=== PATIENT | female | born 1985 | race Caucasian/White ===

== ENCOUNTER 2022-02-26 19:05 | Emergency (ER) | payer OTHER ==
--- NOTE | 2022-02-26 19:17 | ERPHSYRPT ---
- History of Present Illness Time Seen by Provider: 02/26/22 19:17 Source: patient Exam Limitations: no limitations Physician History: This is a 36-year-old white female who has diabetes and hypertension and began having pain in her lower back that was radiating down her buttock. She has no difficulty urinating. She has no bowel or bladder incontinence. She has no loss of sensation or motor function in her lower extremities. She has had no back surgeries in the past. She has not fallen and denies acute traumatic injury. She has no urinary tract infection symptoms. Patient stated that she has tried Tylenol and ibuprofen without any benefit. Patient states that she has had steroids in the past Timing/Duration: yesterday Method of Injury: other (No injury) Quality: radiating, sharp Back Pain Location: lumbar spine Back Pain Radiation: buttocks Severity of Pain-Max: moderate Severity of Pain-Current: moderate Modifying Factors: Improves With: movement Associated Symptoms: lower back pain, muscle spasms, No urinary incontinence, No loss of bowel control, No constipation, No vomiting, No problems urinating, No numbness in legs/feet Previous symptoms: no prior history Allergies/Adverse Reactions: naproxen Adverse Reaction (Severe, Verified 02/26/22 19:27) Rash daptomycin [From Cubicin] Adverse Reaction (Intermediate, Verified 02/26/22 19:27) Hives insulin detemir [From Levemir U-100 Insulin] Adverse Reaction (Intermediate, Verified 02/26/22 19:27) Hives Home Medications: Amlodipine Besylate 5 mg [Norvasc 5 mg] 5 mg PO DAILY 02/26/22 [History] Citalopram Hydrobromide [Celexa] 40 mg PO DAILY 02/26/22 [History] Famotidine 20 mg PO DAILY 02/26/22 [History] Gabapentin 300 mg PO TID 02/26/22 [History] Gemfibrozil [Lopid] 600 mg PO BID 02/26/22 [History] Metformin HCl 500 mg [Glucophage 500 MG] 1 tab PO BID 02/26/22 [History] cloNIDine HCL [Clonidine HCl] 0.2 mg PO TID 02/26/22 [History] Travel Risk - International Travel Have you traveled outside of the country in past 3 weeks: No - Coronavirus Screening Are you exhibiting any of the following symptoms?: No Close contact with a COVID-19 positive Pt in past 14-21 Days: No - Review of Systems Constitutional: No Symptoms Eyes: No Symptoms Ears, Nose, & Throat: No Symptoms Respiratory: No Symptoms Cardiac: No Symptoms Abdominal/Gastrointestinal: No Symptoms Genitourinary Symptoms: No Symptoms Musculoskeletal: No Symptoms, Back Pain, No Fall, No Injury Skin: No Symptoms Neurological: No Symptoms Psychological: No Symptoms Endocrine: No Symptoms Hematologic/Lymphatic: No Symptoms Immunological/Allergic: No Symptoms All Other Systems: Reviewed and Negative - Past Medical History Pertinent Past Medical History: Yes - Past Surgical History Past Surgical History: Yes - Nursing Vital Signs Nursing Vital Signs: Initial Vital Signs Temperature 98.4 F 02/26/22 19:17 Pulse Rate 65 02/26/22 19:17 Respiratory Rate 20 02/26/22 19:17 Blood Pressure 140/73 02/26/22 19:17 O2 Sat by Pulse Oximetry 99 02/26/22 19:17 Pain Scale Pain Intensity 10 - Physical Exam General Appearance: no apparent distress, alert, anxiety Eye Exam: PERRL/EOMI, eyes nml inspection Ears, Nose, Throat Exam: normal ENT inspection, moist mucous membranes Neck Exam: normal inspection, non-tender, supple, full range of motion Respiratory Exam: airway intact, No chest tenderness, No respiratory distress Gastrointestinal Exam: No tenderness Pelvic Exam: not done Rectal Exam: not done Back Exam: decreased range of motion, muscle spasm, No vertebral tenderness Extremity Exam: normal inspection, normal range of motion, pelvis stable Neurologic Exam: alert, oriented x 3, cooperative, cutter head sharpener II-XII nml as tested, normal mood/affect, nml cerebellar function, nml station & gait, sensation nml Skin Exam: normal color, warm, dry Lymphatic Exam: No adenopathy SpO2 Interpretation: normal O2 Delivery: Room Air - Course Nursing assessment & vital signs reviewed: Yes Ordered Tests: Active Orders 24 hr Category Date Time Status NECK WO CONTRAST [CT] Stat Exams 02/26/22 19:52 Stop Req Medication Summary Discontinued Medications Generic Name Dose Route Start Last Admin Trade Name Freq PRN Reason Stop Dose Admin Ceftriaxone Sodium 1,000 mg 02/26/22 19:53 Ceftriaxone Sodium 1000 Mg Inj Vial IM 02/26/22 19:54 STAT ONE Methylprednisolone Sodium 0 mg 02/26/22 19:53 Succinate 125 mg/ Sterile IM 02/26/22 19:54 Water 2 ml STAT ONE Orphenadrine Citrate 100 mg 02/26/22 19:55 Orphenadrine Citrate 100 Mg Er Tab PO 02/26/22 19:56 STAT ONE Oxycodone/Acetaminophen 1 tab 02/26/22 19:55 Oxycodone Hcl/Apap 5 Mg/325 Mg Tablet PO 02/26/22 19:56 STAT STA - Progress Progress: improved, pain not gone completely Counseled pt/family regarding: diagnosis, need for follow-up - Departure Departure Disposition: Home Clinical Impression: Back pain Condition: Stable Critical Care Time: No Additional Instructions: Take your medication as prescribed. Call your primary prescribing provider tomorrow morning to make arranges for follow-up for further evaluation and management. Prescriptions: Prednisone 10 mg [Deltasone 10 mg] 10 mg PO TID #12 tablet Orphenadrine Citrate 100 mg [Norflex 100 MG Tablet] 100 mg PO BID #10 tab
[2022-02-26] MEDS ORDERED: Rocephin 1000 MG INJ IM ONE (19:53)
[2022-02-26] MEDS ORDERED: solu-MEDROL 125 MG, Sterile H2O 10 ml 2 ML IM ONE ×2 (19:53)
[2022-02-26] MEDS ORDERED: Norflex 100 MG Tablet PO ONE (19:55)
[2022-02-26] MEDS ORDERED: PERCOCET TABLET 5/325MG PO STA ×2 (19:55→20:06)
[2022-02-26] MEDS ORDERED: Sterile H2O 10 ml IJ ONE (20:02)
[2022-02-26] MEDS ORDERED: solu-MEDROL ONE (20:03)
[2022-02-26] MEDS ORDERED: PERCOCET TABLET 5/325MG ONE ×2 (20:03→20:11)
[2022-02-26 20:23] VITALS: BP 112/64; PULSE 72; O2SAT 98
== END 2022-02-26 20:24 | disposition home or self-care (01) ==
LOC: ED 19:05
DX: M54.50 Low back pain, unspecified (principal); Z79.84 Long term (current) use of oral hypoglycemic drugs; Z79.52 Long term (current) use of systemic steroids; Z79.899 Other long term (current) drug therapy
CPT/HCPCS: 96372; 99283; J2930; A9270-GY

== ENCOUNTER 2022-03-04 18:46 | Emergency (ER) | payer OTHER ==
--- NOTE | 2022-03-04 19:01 | ERPHSYRPT ---
- History of Present Illness Time Seen by Provider: 03/04/22 19:01 Source: patient Exam Limitations: no limitations Physician History: This is an overweight 36-year-old white female who is new to the area and does not have a primary care physician but is working to [employer] and presents with recurrent low back pain with radiates to both buttock areas. Patient states that she was experiencing improved low back pain after her visit here on 02/26/2022 and receiving a prescription for prednisone and Norflex orally. However, today she twisted the wrong way when she was opening a car door and the pain recurred. She did not fall. She does not have urinary incontinence. She has no loss of control of her bowels. She has no constipation. She does not have loss of sensation to her lower extremities. Timing/Duration: today Method of Injury: bending, twisted Quality: sharp Back Pain Location: lumbar spine, paraspinous muscles Back Pain Radiation: buttocks Severity of Pain-Max: moderate Severity of Pain-Current: moderate Modifying Factors: Improves With: movement Associated Symptoms: lower back pain, muscle spasms, No urinary incontinence, No loss of bowel control, No problems urinating, No numbness in legs/feet, No sensory/motor loss, No tingling in legs/feet Previous symptoms: same symptoms as today, recently seen, recently treated Allergies/Adverse Reactions: naproxen Adverse Reaction (Severe, Verified 03/04/22 19:02) Rash daptomycin [From Cubicin] Adverse Reaction (Intermediate, Verified 03/04/22 19:02) Hives insulin detemir [From Levemir U-100 Insulin] Adverse Reaction (Intermediate, Verified 03/04/22 19:02) Hives Home Medications: Amlodipine Besylate 5 mg [Norvasc 5 mg] 5 mg PO DAILY 02/26/22 [History] Citalopram Hydrobromide [Celexa] 40 mg PO DAILY 02/26/22 [History] Famotidine 20 mg PO DAILY 02/26/22 [History] Gabapentin 300 mg PO TID 02/26/22 [History] Gemfibrozil [Lopid] 600 mg PO BID 02/26/22 [History] Metformin HCl 500 mg [Glucophage 500 MG] 1 tab PO BID 02/26/22 [History] cloNIDine HCL [Clonidine HCl] 0.2 mg PO TID 02/26/22 [History] Hx Tetanus, Diphtheria Vaccination/Date Given: Yes Hx Influenza Vaccination/Date Given: No Hx Pneumococcal Vaccination/Date Given: No Travel Risk - International Travel Have you traveled outside of the country in past 3 weeks: No - Coronavirus Screening Are you exhibiting any of the following symptoms?: No Close contact with a COVID-19 positive Pt in past 14-21 Days: No - Vaccine Status Have you recieved a Covid-19 vaccination: No - Review of Systems Constitutional: No Symptoms Eyes: No Symptoms Ears, Nose, & Throat: No Symptoms Respiratory: No Symptoms Cardiac: No Symptoms Abdominal/Gastrointestinal: No Symptoms Genitourinary Symptoms: No Symptoms Musculoskeletal: Back Pain Skin: No Symptoms Neurological: No Symptoms Psychological: No Symptoms Endocrine: No Symptoms Hematologic/Lymphatic: No Symptoms Immunological/Allergic: No Symptoms All Other Systems: Reviewed and Negative - Past Medical History Pertinent Past Medical History: Yes Neurological History: No Pertinent History ENT History: No Pertinent History Cardiac History: No Pertinent History Respiratory History: Asthma, Bronchitis Endocrine Medical History: Diabetes Type II Musculoskeletal History: No Pertinent History GI Medical History: GERD, Gallbladder Disease History: No Pertinent History Psycho-Social History: Anxiety, Depression Female Reproductive Disorders: No Pertinent History Other Medical History: skin disease - Past Surgical History Past Surgical History: Yes Neuro Surgical History: No Pertinent History Cardiac: No Pertinent History Respiratory: No Pertinent History Gastrointestinal: Cholecystectomy Genitourinary: No Pertinent History Musculoskeletal: No Pertinent History Female Surgical History: Hysterectomy Other Surgical History: sweat glands and oil glands removed from armpits and rt leg - Social History Smoking Status: Former smoker Exposure to second hand smoke: No Drug Use: none Patient Lives Alone: No - Nursing Vital Signs Nursing Vital Signs: Initial Vital Signs Temperature 96.9 F 03/04/22 18:57 Pulse Rate 73 03/04/22 18:57 Respiratory Rate 16 03/04/22 18:57 Blood Pressure 157/96 03/04/22 18:57 O2 Sat by Pulse Oximetry 99 03/04/22 18:57 Pain Scale Pain Intensity 4 - Physical Exam General Appearance: no apparent distress, alert, anxiety, obese Eye Exam: PERRL/EOMI, eyes nml inspection Ears, Nose, Throat Exam: normal ENT inspection, moist mucous membranes Neck Exam: normal inspection, non-tender, supple, full range of motion Respiratory Exam: airway intact, No chest tenderness, No respiratory distress Rectal Exam: not done Back Exam: normal inspection, decreased range of motion, muscle spasm, No CVA tenderness, No vertebral tenderness Extremity Exam: normal inspection, normal range of motion, pelvis stable Neurologic Exam: alert, oriented x 3, cooperative, research test engine evaluator II-XII nml as tested, normal mood/affect, nml cerebellar function, nml station & gait, sensation nml Skin Exam: normal color, warm, dry Lymphatic Exam: No adenopathy SpO2 Interpretation: normal O2 Delivery: Room Air Ordered Tests: Active Orders 24 hr Category Date Time Status LUMBAR LIMITED (2 OR 3 VIEWS) Stat Exams 03/04/22 19:13 Taken Medication Summary Discontinued Medications Generic Name Dose Route Start Last Admin Trade Name Marcelq PRN Reason Stop Dose Admin Hydromorphone HCl 1 mg 03/04/22 19:22 03/04/22 19:27 Hydromorphone 1 Mg/1ml Inj 1 Mg/Ml Syringe IM 03/04/22 19:23 1 mg STAT ONE Administration Hydromorphone HCl Confirm 03/04/22 19:25 Hydromorphone 1 Mg/1ml Inj 1 Mg/Ml Syringe Administered 03/04/22 19:26 Dose 1 mg .ROUTE .STK-MED ONE Ondansetron HCl 4 mg 03/04/22 19:22 03/04/22 19:27 Zofran 4 Mg/Udtablet Orally Disintegrating PO 03/04/22 19:23 4 mg STAT ONE Administration Ondansetron HCl Confirm 03/04/22 19:25 Zofran 4 Mg/Udtablet Orally Disintegrating Administered 03/04/22 19:26 Dose 4 mg .ROUTE .STK-MED ONE Orphenadrine Citrate 100 mg 03/04/22 19:23 03/04/22 19:39 Orphenadrine Citrate 100 Mg Er Tab PO 03/04/22 19:24 100 mg STAT ONE Administration - Progress Progress: improved, pain not gone completely, re-examined Progress Note: 03/04/22 20:13 X-ray of the lumbar spine shows no acute fracture or subluxation. Counseled pt/family regarding: diagnosis, need for follow-up, rad results - Departure Departure Disposition: Home Clinical Impression: Low back pain Condition: Stable Critical Care Time: No Referrals: DOCTOR,NO FAMILY [Primary Care Provider] - Follow up/PCP as directed Additional Instructions: Add ibuprofen 600 mg orally with food 3 times a day for the next 5 days. Follow-up with Dr. Graff's office to make sure you obtain an appointment. Prescriptions: Oxycodone HCl/Acetaminophen [Percocet 5-325 mg Tablet] 1 each PO Q8H PRN PRN #6 tablet MDD 3 PRN Reason: Moderate To Severe Pain Orphenadrine Citrate 100 mg [Norflex 100 MG Tablet] 100 mg PO BID #10 tab
[2022-03-04] MEDS ORDERED: ZOFRAN ODT 4 MG PO ONE (19:22)
[2022-03-04] MEDS ORDERED: Hydromorphone 1 mg/ml Injection IM ONE (19:22)
[2022-03-04] MEDS ORDERED: Norflex 100 MG Tablet PO ONE (19:23)
[2022-03-04] MEDS ORDERED: ZOFRAN ODT 4 MG ONE (19:25)
[2022-03-04] MEDS ORDERED: Hydromorphone 1 mg/ml Injection ONE (19:25)
[2022-03-04 20:12] VITALS: BP 142/92; PULSE 81; O2SAT 98
--- NOTE | 2022-03-05 08:52 | XRAY ---
Indication: Lumbar pain. No known injury. Comparison: None 3 view lumbar spine demonstrates 5 lumbar segments in normal alignment with minimal L4-S1 disc space narrowing and incidental surgical clip lateral to right L2-L3 interspace. No other bony, articular, or soft tissue abnormalities.
== END 2022-03-04 20:22 | disposition home or self-care (01) ==
LOC: ED 18:46
DX: M54.50 Low back pain, unspecified (principal); X50.0XXA Overexertion from strenuous movement or load, initial encounter; E11.9 Type 2 diabetes mellitus without complications; Z79.84 Long term (current) use of oral hypoglycemic drugs; Z79.899 Other long term (current) drug therapy; Z28.310 Unvaccinated for COVID-19; Z79.891 Long term (current) use of opiate analgesic
CPT/HCPCS: 72100; 96372; 99283; J1170; Q0162; A9270-GY

== ENCOUNTER 2022-03-26 16:26 | Emergency (ER) | payer OTHER ==
--- NOTE | 2022-03-26 16:35 | ERPHSYRPT ---
- History of Present Illness Time Seen by Provider: 03/26/22 16:35 Source: patient Exam Limitations: no limitations Physician History: This is a 36-year-old overweight white female who is diabetic and also has a history of hidradenitis suppurativa and is taking metformin and chronic daily clindamycin and presents with recurrent abscesses x2 in the left buttock. She has not had any fevers. Timing/Duration: day(s) (Enlarging over the last few days) Quality: burning, painful Severity: moderate Location: other (Left buttock) Possible Causes: other (Hidradenitis suppurativa) Associated Symptoms: denies symptoms Allergies/Adverse Reactions: naproxen Adverse Reaction (Severe, Verified 03/26/22 16:37) Rash daptomycin [From Cubicin] Adverse Reaction (Intermediate, Verified 03/26/22 16:37) Hives insulin detemir [From Levemir U-100 Insulin] Adverse Reaction (Intermediate, Verified 03/26/22 16:37) Hives Home Medications: Amlodipine Besylate 5 mg [Norvasc 5 mg] 5 mg PO DAILY 02/26/22 [History] Citalopram Hydrobromide [Celexa] 40 mg PO DAILY 02/26/22 [History] Famotidine 20 mg PO DAILY 02/26/22 [History] Gabapentin 300 mg PO TID 02/26/22 [History] Gemfibrozil [Lopid] 600 mg PO BID 02/26/22 [History] Metformin HCl 500 mg [Glucophage 500 MG] 1 tab PO BID 02/26/22 [History] cloNIDine HCL [Clonidine HCl] 0.2 mg PO TID 02/26/22 [History] Hx Tetanus, Diphtheria Vaccination/Date Given: Yes Hx Influenza Vaccination/Date Given: No Hx Pneumococcal Vaccination/Date Given: No Travel Risk - International Travel Have you traveled outside of the country in past 3 weeks: No - Coronavirus Screening Are you exhibiting any of the following symptoms?: No Close contact with a COVID-19 positive Pt in past 14-21 Days: No - Vaccine Status Have you recieved a Covid-19 vaccination: No - Review of Systems Constitutional: No Symptoms Eyes: No Symptoms Ears, Nose, & Throat: No Symptoms Respiratory: No Symptoms Cardiac: No Symptoms Abdominal/Gastrointestinal: No Symptoms Genitourinary Symptoms: No Symptoms Musculoskeletal: No Symptoms Skin: Other (Abscesses x2 left buttock) Neurological: No Symptoms Psychological: No Symptoms Endocrine: No Symptoms Hematologic/Lymphatic: No Symptoms Immunological/Allergic: No Symptoms All Other Systems: Reviewed and Negative - Past Medical History Pertinent Past Medical History: Yes Neurological History: No Pertinent History ENT History: No Pertinent History Cardiac History: No Pertinent History Respiratory History: Asthma, Bronchitis Endocrine Medical History: Diabetes Type II Musculoskeletal History: No Pertinent History GI Medical History: GERD, Gallbladder Disease History: No Pertinent History Psycho-Social History: Anxiety, Depression Female Reproductive Disorders: No Pertinent History Other Medical History: skin disease - Past Surgical History Past Surgical History: Yes Neuro Surgical History: No Pertinent History Cardiac: No Pertinent History Respiratory: No Pertinent History Gastrointestinal: Cholecystectomy Genitourinary: No Pertinent History Musculoskeletal: No Pertinent History Female Surgical History: Hysterectomy Other Surgical History: sweat glands and oil glands removed from armpits and rt leg - Social History Smoking Status: Former smoker Exposure to second hand smoke: No Drug Use: none Patient Lives Alone: No - Nursing Vital Signs Nursing Vital Signs: Initial Vital Signs Temperature 97.5 F 03/26/22 16:38 Pulse Rate 80 03/26/22 16:38 Respiratory Rate 18 03/26/22 16:38 Blood Pressure 140/76 03/26/22 16:38 O2 Sat by Pulse Oximetry 98 03/26/22 16:38 Pain Scale Pain Intensity 9 - Physical Exam General Appearance: no apparent distress, alert, anxiety Eye Exam: PERRL/EOMI, eyes nml inspection Ears, Nose, Throat Exam: normal ENT inspection, moist mucous membranes Neck Exam: normal inspection, non-tender, supple, full range of motion Respiratory Exam: airway intact, No chest tenderness, No respiratory distress Gastrointestinal/Abdomen Exam: No tenderness Pelvic Exam: not done Rectal Exam: not done Back Exam: normal inspection, normal range of motion, No CVA tenderness, No vertebral tenderness Extremity Exam: normal inspection, normal range of motion, pelvis stable Neurologic Exam: alert, oriented x 3, cooperative, manufacturing technician II-XII nml as tested, normal mood/affect, nml cerebellar function, nml station & gait, sensation nml Skin Exam: other (Abscesses x2 left buttock. Each 1 measuring approximately 2- 1/2 cm in its greatest diameter. They are ballotable and obvious abscess present) Lymphatic Exam: No adenopathy SpO2 Interpretation: normal O2 Delivery: Room Air Procedures - Incision and Drainage Time of Procedure: 17:05 Site: Left buttock2 abscesses Anesthesia: 1% Lidocaine cc's of anesthesia: 5 (Total) Blade Size: 15 I & D Procedure: betadine prep, culture obtained Results: moderate amount pus - Course Nursing assessment & vital signs reviewed: Yes Ordered Tests: Active Orders 24 hr Category Date Time Status CULTURE,WOUND Stat Lab 03/26/22 16:48 Ordered Medication Summary Discontinued Medications Generic Name Dose Route Start Last Admin Trade Name Eddie PRN Reason Stop Dose Admin Ceftriaxone Sodium 1,000 mg 03/26/22 16:47 03/26/22 17:11 Ceftriaxone Sodium 1000 Mg Inj Vial IM 03/26/22 16:48 1,000 mg STAT ONE Administration Ceftriaxone Sodium Confirm 03/26/22 17:03 Ceftriaxone Sodium 1000 Mg Inj Vial Administered 03/26/22 17:04 Dose 1,000 mg .ROUTE .STK-MED ONE Lidocaine HCl 5 ml 03/26/22 16:48 03/26/22 17:12 Lidocaine Hcl 1% 20 Ml Mdv 20 Ml Ml IJ 03/26/22 16:49 5 ml STAT ONE Administration Lidocaine HCl Confirm 03/26/22 16:53 Lidocaine Hcl 1% 20 Ml Mdv 20 Ml Ml Administered 03/26/22 16:54 Dose 5 ml .ROUTE .STK-MED ONE Trimethoprim/Sulfamethoxazole 1 tab 03/26/22 16:48 03/26/22 17:12 Smz/Tmp Ds Tablet 1 Tablet PO 03/26/22 16:49 1 tab STAT ONE Administration Trimethoprim/Sulfamethoxazole Confirm 03/26/22 17:03 Smz/Tmp Ds Tablet 1 Tablet Administered 03/26/22 17:04 Dose 1 tab PO .STK-MED ONE - Progress Progress: improved Counseled pt/family regarding: diagnosis, need for follow-up - Departure Departure Disposition: Home Clinical Impression: Hidradenitis suppurativa, Left buttock abscess Condition: Stable Critical Care Time: No Referrals: DOCTOR,NO FAMILY [NON-STAFF PHY W/O PRIVILEGES] - Follow up/PCP as directed Additional Instructions: Sitz bath with warm soapy water or Epson salts twice a day. Press around the area is to express any expressible fluid. Expect some bleeding and this should decrease over several days. Use a Rj pad or women's menstrual pad to cover the site and change twice a day plus as needed. Take your antibiotics as prescribed. Follow-up with your primary care physician for further evaluation and management. Prescriptions: Hydrocodone/APAP 5/325 [Salix 5/325 mg] 1 each PO Q8H PRN PRN #8 tablet MDD 3 PRN Reason: Pain Smz/Tmp Ds Tablet [Bactrim Ds Tablet] 1 udtab PO BID #14 tablet
[2022-03-26] MEDS ORDERED: Rocephin 1000 MG INJ IM ONE (16:47)
[2022-03-26] MEDS ORDERED: XYLOCAINE 1% HCL 20 ML MDV IJ ONE (16:48)
[2022-03-26] MEDS ORDERED: BACTRIM DS TABLET PO ONE ×2 (16:48→17:03)
[2022-03-26 16:51] VITALS: BP 140/76; PULSE 80; O2SAT 98
[2022-03-26] MEDS ORDERED: XYLOCAINE 1% HCL 20 ML MDV ONE (16:53)
[2022-03-26] MEDS ORDERED: Rocephin 1000 MG INJ ONE (17:03)
== END 2022-03-26 17:37 | disposition home or self-care (01) ==
LOC: ED 16:26
DX: L73.2 Hidradenitis suppurativa (principal); L02.31 Cutaneous abscess of buttock; E11.9 Type 2 diabetes mellitus without complications; Z79.84 Long term (current) use of oral hypoglycemic drugs; Z79.899 Other long term (current) drug therapy; Z79.891 Long term (current) use of opiate analgesic; Z28.310 Unvaccinated for COVID-19
CPT/HCPCS: 10060; 87070; 87077; 87186; 96372; 99283; J0696; A9270-GY

== ENCOUNTER 2022-05-07 15:15 | Emergency (ER) | payer OTHER ==
[2022-05-07] MEDS ORDERED: XYLOCAINE 1% HCL 20 ML MDV ONE (15:32)
[2022-05-07] MEDS ORDERED: TORAdol 30 mg Injection IM ONE (15:41)
--- NOTE | 2022-05-07 15:46 | ERPHSYRPT ---
- History of Present Illness Source: patient, other (Mother) Exam Limitations: no limitations Patient Subjective Stated Complaint: PT HERE FOR ABSCESS TO LEFT GROIN AND BUTTUCK FOR A COUPLE DAYS, NO DRAINAGE Triage Nursing Assessment: PT ALERT, WALKED IN, RESP EASY, SKIN W/D/P. FACE MASK IN PLACE Physician History: 37 yo wf w supra-pubic abscess and L gluteal fold abscess x2 for 2-3 days. Pt has a h/o Hiradenitis suppurativa. She has had multiple I/D of abscesses in the past. Pain is moderate. She denies fever/trauma/N/V/D. Pt wants I/D of lesions. Timing/Duration: other (2-3 days) Quality: painful Severity: moderate Location: other (Supra-pubic/L gluteal fold x2) Possible Causes: no cause identified Modifying Factors: Worsens With: antihistamine, calamine lotion, prednisone, scratching, topical steriods Associated Symptoms: change in skin texture, No blisters, No difficulty breathing, No edema, No fever, No flushing, No headache, No hives, No jaundice, No malaise, No nasal congestion, No numbness, No pallor, No paresthesia, No petechiae, No rash Allergies/Adverse Reactions: naproxen Adverse Reaction (Severe, Verified 05/07/22 15:18) Rash daptomycin [From Cubicin] Adverse Reaction (Intermediate, Verified 05/07/22 15:18) Hives insulin detemir [From Levemir U-100 Insulin] Adverse Reaction (Intermediate, Verified 05/07/22 15:18) Hives Home Medications: Amlodipine Besylate 5 mg [Norvasc 5 mg] 5 mg PO DAILY 02/26/22 [History] Citalopram Hydrobromide [Celexa] 40 mg PO DAILY 02/26/22 [History] Famotidine 20 mg PO DAILY 02/26/22 [History] Gabapentin 300 mg PO TID 02/26/22 [History] Gemfibrozil [Lopid] 600 mg PO BID 02/26/22 [History] Metformin HCl 500 mg [Glucophage 500 MG] 1 tab PO BID 02/26/22 [History] cloNIDine HCL [Clonidine HCl] 0.2 mg PO TID 02/26/22 [History] Hx Tetanus, Diphtheria Vaccination/Date Given: Yes Hx Influenza Vaccination/Date Given: No Hx Pneumococcal Vaccination/Date Given: No Immunizations Up to Date: Yes Travel Risk - International Travel Have you traveled outside of the country in past 3 weeks: No - Coronavirus Screening Are you exhibiting any of the following symptoms?: No Close contact with a COVID-19 positive Pt in past 14-21 Days: No - Vaccine Status Have you recieved a Covid-19 vaccination: No - Review of Systems Constitutional: No Symptoms Eyes: No Symptoms Ears, Nose, & Throat: No Symptoms Respiratory: No Symptoms Cardiac: No Symptoms Abdominal/Gastrointestinal: No Symptoms Musculoskeletal: No Symptoms Skin: No Symptoms Neurological: No Symptoms Psychological: No Symptoms Endocrine: No Symptoms Hematologic/Lymphatic: No Symptoms Immunological/Allergic: No Symptoms - Past Medical History Pertinent Past Medical History: Yes Neurological History: No Pertinent History ENT History: No Pertinent History Cardiac History: No Pertinent History Respiratory History: Asthma, Bronchitis Endocrine Medical History: Diabetes Type II Musculoskeletal History: No Pertinent History GI Medical History: GERD, Gallbladder Disease History: No Pertinent History Psycho-Social History: Anxiety, Depression Female Reproductive Disorders: No Pertinent History Other Medical History: skin disease - Past Surgical History Past Surgical History: Yes Neuro Surgical History: No Pertinent History Cardiac: No Pertinent History Respiratory: No Pertinent History Gastrointestinal: Cholecystectomy Genitourinary: No Pertinent History Musculoskeletal: No Pertinent History Female Surgical History: Hysterectomy Other Surgical History: sweat glands and oil glands removed from armpits and rt leg - Social History Smoking Status: Former smoker Exposure to second hand smoke: No Drug Use: none Patient Lives Alone: No Significant Family History: no pertinent family hx - Female History Hx Last Menstrual Period: HYSTER Hx Now: No - Nursing Vital Signs Nursing Vital Signs: Initial Vital Signs Temperature 98.5 F 05/07/22 15:21 Pulse Rate 74 05/07/22 15:21 Respiratory Rate 18 05/07/22 15:21 Blood Pressure 154/84 05/07/22 15:21 O2 Sat by Pulse Oximetry 98 05/07/22 15:21 Pain Scale Pain Intensity 8 Hypertensive - Physical Exam General Appearance: no apparent distress Eye Exam: PERRL/EOMI, eyes nml inspection Ears, Nose, Throat Exam: normal ENT inspection, TMs normal, pharynx normal, moist mucous membranes Neck Exam: normal inspection, non-tender, supple, full range of motion, No meningismus, No mass, No Brudzinski, No Kernig's Respiratory Exam: normal breath sounds, lungs clear, airway intact, No respiratory distress Cardiovascular Exam: regular rate/rhythm, normal heart sounds, normal peripheral pulses, capillary refill <2 sec, No murmur Gastrointestinal/Abdomen Exam: soft, normal bowel sounds, No tenderness Pelvic Exam: not done Rectal Exam: deferred Back Exam: normal inspection, normal range of motion, No CVA tenderness Extremity Exam: normal inspection, normal range of motion Neurologic Exam: alert, oriented x 3, cooperative, cupola melter helper II-XII nml as tested, normal mood/affect Skin Exam: other (Supra-pubic abscess/L gluteal fold abscess x2) Lymphatic Exam: No adenopathy SpO2 Interpretation: normal SpO2: 98 O2 Delivery: Room Air Procedures - Incision and Drainage Time of Procedure: 15:48 (Verbal consent obtained after risks-benefits explained) Site: supra-pubic/L gluteal fold x2 Anesthesia: 1% Lidocaine cc's of anesthesia: 5 Blade Size: 11 I & D Procedure: hibiclens prep Results: small amount pus - Course Nursing assessment & vital signs reviewed: Yes Ordered Tests: Medication Summary Discontinued Medications Generic Name Dose Route Start Last Admin Trade Name Freq PRN Reason Stop Dose Admin Ketorolac Tromethamine 30 mg 05/07/22 15:41 05/07/22 15:52 Ketorolac Tromethamine 30 Mg/Ml Inj IM 05/07/22 15:42 30 mg STAT ONE Administration Ketorolac Tromethamine Confirm 05/07/22 15:47 Ketorolac Tromethamine 30 Mg/Ml Inj Administered 05/07/22 15:48 Dose 30 mg .ROUTE .STK-MED ONE Lidocaine HCl Confirm 05/07/22 15:32 Lidocaine Hcl 1% 20 Ml Mdv 20 Ml Ml Administered 05/07/22 15:33 Dose 5 ml .ROUTE .STK-MED ONE - Progress Progress: improved Progress Note: 05/07/22 15:49 Verbal consent for I/D obtained after risks/benefits explained Counseled pt/family regarding: diagnosis, need for follow-up - Departure Departure Disposition: Home Clinical Impression: Skin abscess Condition: Stable Critical Care Time: No Referrals: COOPER HAWKINS PA [Primary Care Provider] - Follow up/PCP as directed Instructions: Boil, Abscess Incision and Drainage, MRSA (DC) Additional Instructions: Wash areas twice a day w soap/water Start Doxycycline twice a day for 10 days Pain meds as needed(Use a stool softener w pain meds) Dr. Han 05/19/22 9:45 AM Return to ER for increasing pain/redness/swelling/temperatre greater than 100.5 Prescriptions: Hydrocodone/Acetaminophen [Hydrocodone-Acetamin 5-325 mg] 1 each PO Q6HPRN PRN #8 tablet MDD 4 tabs PRN Reason: Pain Doxycycline Monohydrate 100 mg PO BID 10 Days #20 cap
[2022-05-07] MEDS ORDERED: TORAdol 30 mg Injection ONE (15:47)
[2022-05-07 16:20] VITALS: BP 153/84; PULSE 88
[2022-05-07 19:40] VITALS: O2SAT 98
== END 2022-05-07 16:20 | disposition home or self-care (01) ==
LOC: ED 15:15
DX: L02.214 Cutaneous abscess of groin (principal); L02.31 Cutaneous abscess of buttock; E11.9 Type 2 diabetes mellitus without complications; Z79.84 Long term (current) use of oral hypoglycemic drugs; Z79.899 Other long term (current) drug therapy; Z79.891 Long term (current) use of opiate analgesic; Z28.310 Unvaccinated for COVID-19
CPT/HCPCS: 10060; 49999; 96372; 99282; J1885

== ENCOUNTER 2022-06-16 11:14 | Day surgery (SDC) | payer OTHER ==
--- NOTE | 2022-06-16 09:39 | HP ---
DATE OF SURGERY: 06/16/2022 HISTORY OF PRESENT ILLNESS: The patient is a 37-year-old female had three infected areas lanced by [facility] Emergency Room doctor recently. PAST MEDICAL HISTORY: She has some asthma, chronic obstructive pulmonary disease, gallbladder disease, depression, diabetes. PAST SURGICAL HISTORY: Hemorrhoid surgery. Excision of sweat oil glands in the past. Tubal in the past. Hysterectomy in the past. MEDICATIONS: Celexa, Pepcid, topiramate, amlodipine, gemfibrozil, metformin (diabetes type II), clonidine. ALLERGIES: NAPROXEN (RASH). CUBICIN (HIVES). LEVEMIR (WELTS). FAMILY HISTORY: Diabetes. Thyroid cancer. SOCIAL HISTORY: Former smoker. No alcohol abuse. REVIEW OF SYSTEMS: Fourteen systems reviewed, negative or noncontributory as above and per preadmission questionnaire. No chest pain or palpitations currently. PHYSICAL EXAMINATION: GENERAL: No acute distress. HEENT: Sclerae nonicteric. NECK: No JVD. CHEST: Equal excursion, nonlabored breathing. CVS: Regular rate and rhythm. ABDOMEN: Soft. EXTREMITIES: No significant edema. NEURO: Alert, oriented, moving extremities symmetrically. PSYCH: Appropriate mood and affect. IMPRESSION: She has a ruptured cyst right side on pubic area/buttock area. Given the persistent infected area desires excision. General risk of bleeding or infection possibly requiring packing, risk of hematoma or seroma formation, general risk of aches, pains, burning or numbness, risk of anesthesia, deep venous thrombosis, pulmonary embolism or pneumonia but not limited to. Risk of dehiscence of the wound if attempted to close particularly given her buttock area in a high motion area possibly requiring packing. She understands what we excise likely will not recur but she could get similar area adjacent to or elsewhere on her body. She understands and agrees to the planned procedure. Will proceed with excisional biopsy of pubic/buttock area recurrent ruptured cyst probable packing as an outpatient.
[~2022-06-16 11:14] MED LIST: Sensorcaine 0.25% 10 ML ONE
[2022-06-16] MEDS ORDERED: CEFAZOLIN 2 GM-D5W BAG** 2 GM/50 ML ML IV SCH (12:00)
[2022-06-16] MEDS ORDERED: Lactated Ringers 1,000 ML IV SCH (12:30)
[2022-06-16] MEDS ORDERED: Sensorcaine 0.25% 10 ML ONE (14:11)
[2022-06-16] MEDS ORDERED: Versed 2 MG/2 ML Injection ONE (14:29)
[2022-06-16] MEDS ORDERED: DIPRIVAN 200 MG/20 ML IV ONE (14:29)
[2022-06-16] MEDS ORDERED: SUBLIMAZE 100 MCG/2 ML ONE ×5 (14:29→16:34)
[2022-06-16] MEDS ORDERED: Xylocaine-Mpf 2% 5 Ml Vial ONE (14:43)
[2022-06-16] MEDS ORDERED: Lactated Ringers 1,000 ML IV ONE (15:06)
[2022-06-16] MEDS ORDERED: CLINDAMYCIN-D5W 900 MG/50 ML*** 900 MG/50 ML BAG IV ONE (15:25)
[2022-06-16] MEDS ORDERED: Zofran 4 MG/2 ML VIAL ONE (16:53)
[2022-06-16 17:35] VITALS: BP 128/72; PULSE 75; O2SAT 97
--- NOTE | 2022-06-18 13:58 | OP ---
SURGERY DATE/TIME: 06/16/2022 1433 PREOPERATIVE DIAGNOSIS: Nonhealing ruptured cyst site pubic area and right buttock as well as right axilla. POSTOPERATIVE DIAGNOSIS: Nonhealing ruptured cyst site pubic area and right buttock as well as right axilla. PROCEDURES: 1) Excisional biopsy right buttock multiple ruptured cyst sites 8 x 8 cm right buttock and biopsy of second area adjacent to the larger area approximately 1.5 cm right buttock. 2) Excisional biopsy pubic ruptured cyst site approximately 2 cm with margins that one was closed. 3) Excisional biopsy ruptured cyst site right axilla with irrigation and packing. SURGEON: Dr. Joshua Noguera. MANAGER ENGINE: Tam Cabrera, Medical Student III. ANESTHESIA: General. ESTIMATED BLOOD LOSS: Minimal. INDICATIONS: As noted above, consent obtained. The patient wanted a wider area on her buttock area excised. We originally talked about incising the inflamed area but she wanted the wider area excised. We discussed this preoperatively as well as the new area in the right axilla. Consent was obtained. Risk of nonhealing, aches or pain. DESCRIPTION OF PROCEDURE AND FINDINGS: The patient is taken to the operating room. General anesthesia induced. Placed lithotomy position per anesthesia and OR staff. Prepped and draped in usual sterile fashion. After official time out and no disagreement with planned procedure, first starting with the area in the pubic site she had an inflamed area and a couple adjacent areas ruptured cyst site this area was excised about 3 cm with margins down to normal appearing subcutaneous tissue. It did seem to be distributor cleaner throughout area. It was closed with interrupted 3-0 Vicryl and 4-0 Vicryl. Steri-Strips and sterile dressing applied. 0.25% Marcaine local. At this point attention then turned to the buttock. There was one more little bit more anterior area is about 1.5 cm in size carefully excised out to normal subcutaneous tissue. The larger area of multiple ruptured cysts right buttock approximately 8 x 8 cm carefully excised off of normal appearing subcutaneous tissue out to viable tissue passed off for pathology off. These were left open to pack with normal saline wet to dry. Attention was then turned to the right axilla there is a smaller area towards the arm side of the axilla carefully excised was about 1.5 cm in size, excising down to normal appearing subcutaneous tissue. It had some purulence this was irrigated out and packed with normal saline wet to dry. She was transferred to the recovery room in stable condition. I went out to the waiting room. I do not think there was any family available to discuss the findings with at the time. The family showed up later and I discussed the case.
== END 2022-06-16 17:40 | disposition home or self-care (01) ==
LOC: SDC 11:14
PROVIDERS: ATTEND Surgery
DX: N90.7 Vulvar cyst (principal); L02.31 Cutaneous abscess of buttock; L02.411 Cutaneous abscess of right axilla; E11.9 Type 2 diabetes mellitus without complications
CPT/HCPCS: 82947; J0690; J2250; J2405; J2704; J3010

== ENCOUNTER 2022-07-15 18:47 | Emergency (ER) | payer OTHER ==
[2022-07-15 19:44] VITALS: O2SAT 97
[2022-07-15] MEDS ORDERED: MORPHINE SULFATE 4 MG INJ IV ONE (20:17)
[2022-07-15] MEDS ORDERED: MORPHINE SULFATE 10 MG/ML IM ONE (20:20)
[2022-07-15] MEDS ORDERED: MORPHINE SULFATE 4 MG INJ ONE (20:20)
--- NOTE | 2022-07-15 20:20 | ERPHSYRPT ---
- History of Present Illness Time Seen by Provider: 07/15/22 20:19 Source: patient Exam Limitations: no limitations Patient Subjective Stated Complaint: pt states "I had an abscess on my L buttock and had a procedure done and they put a wound vac on me yesterday and I cannot get the sponge thing off. it is stuck to my skin." Triage Nursing Assessment: pt ambulatory to bed by self, pt alert and oriented x3, pt has to lay on her side in bed d/t abscess on L buttock, pt had a procedure on 06/16/[address] Han to have the oil and sweat glands removed from L buttock d/t abscess. Wound vac was put on patient yesterday around 1400, pt is here d/t the sponge from wound vac being stuck to skin and states "won't come off" Physician History: Patient is a 37-year-old female with a history of hidradenitis presents to our ED to remove a wound VAC sponge. Patient states that she was instructed to remove the wound VAC sponge if it began to leak. Patient states the wound VAC began to leak at home. She removed the wound VAC but cannot take the sponge out. Patient is here to remove the sponge. Sponge is adherent to the wound. Patient has no other complaints or concerns at this time. Portions of this note were created with voice recognition technology. There may be grammatical, spelling, punctuation or sound alike errors Timing/Duration: today Severity: moderate Modifying Factors: Improves With: nothing Associated Symptoms: denies symptoms Allergies/Adverse Reactions: naproxen Adverse Reaction (Severe, Verified 07/15/22 19:29) Rash daptomycin [From Cubicin] Adverse Reaction (Intermediate, Verified 07/15/22 19:29) Hives insulin detemir [From Levemir U-100 Insulin] Adverse Reaction (Intermediate, Verified 07/15/22 19:29) Hives Home Medications: Amlodipine Besylate 5 mg [Norvasc 5 mg] 10 mg PO DAILY 02/26/22 [History] Citalopram Hydrobromide [Celexa] 40 mg PO DAILY 02/26/22 [History] Gabapentin 300 mg PO TID 02/26/22 [History] Gemfibrozil [Lopid] 600 mg PO BID 02/26/22 [History] Metformin HCl 500 mg [Glucophage 500 MG] 1 tab PO BID 02/26/22 [History] cloNIDine HCL [Clonidine HCl] 0.2 mg PO TID 02/26/22 [History] Semaglutide [Ozempic] 0.5 mg WEEKLY 05/20/22 [History] Bupropion HCl [Wellbutrin Xl] 300 mg PO DAILY 06/11/22 [History] Insulin Pump Syringe, 3 ml [Extended [place]] 1 each MC DAILY 06/11/22 [History] Topiramate 25 mg [Topamax 25 MG] 25 mg PO DAILY 06/11/22 [History] Hx Tetanus, Diphtheria Vaccination/Date Given: Yes Hx Influenza Vaccination/Date Given: No Hx Pneumococcal Vaccination/Date Given: No Travel Risk - International Travel Have you traveled outside of the country in past 3 weeks: No - Coronavirus Screening Are you exhibiting any of the following symptoms?: No Close contact with a COVID-19 positive Pt in past 14-21 Days: No - Vaccine Status Have you recieved a Covid-19 vaccination: No - Review of Systems Constitutional: No Symptoms, No Fever, No Chills Eyes: No Symptoms Ears, Nose, & Throat: No Symptoms Respiratory: No Symptoms, No Cough, No Dyspnea Cardiac: No Symptoms, No Chest Pain, No Edema, No Syncope Abdominal/Gastrointestinal: No Symptoms, No Abdominal Pain, No Nausea, No Vomiting, No Diarrhea Genitourinary Symptoms: No Symptoms, No Dysuria Musculoskeletal: No Symptoms, No Back Pain, No Neck Pain Skin: No Symptoms, No Rash Neurological: No Symptoms, No Dizziness, No Focal Weakness, No Sensory Changes Psychological: No Symptoms Endocrine: No Symptoms Hematologic/Lymphatic: No Symptoms Immunological/Allergic: No Symptoms All Other Systems: Reviewed and Negative - Past Medical History Pertinent Past Medical History: Yes Neurological History: Peripheral Neuropathy ENT History: No Pertinent History Cardiac History: Hypertension Respiratory History: Asthma Endocrine Medical History: Diabetes Type II Musculoskeletal History: No Pertinent History GI Medical History: GERD, Gallbladder Disease, Other History: No Pertinent History Psycho-Social History: Anxiety, Depression Female Reproductive Disorders: No Pertinent History Other Medical History: GERD - Past Surgical History Past Surgical History: Yes Neuro Surgical History: No Pertinent History Cardiac: No Pertinent History Respiratory: No Pertinent History Gastrointestinal: Cholecystectomy Genitourinary: No Pertinent History Musculoskeletal: No Pertinent History Female Surgical History: Hysterectomy Other Surgical History: sweat glands and oil glands removed from armpits and rt leg and L buttock - Social History Smoking Status: Never smoker Exposure to second hand smoke: No Drug Use: none Patient Lives Alone: No Significant Family History: no pertinent family hx - Female History Hx Last Menstrual Period: hysterecomy Hx Now: No - Nursing Vital Signs Nursing Vital Signs: Initial Vital Signs Temperature 97.8 F 07/15/22 19:30 Pulse Rate 88 07/15/22 19:30 Respiratory Rate 18 07/15/22 19:30 Blood Pressure 148/92 07/15/22 19:30 O2 Sat by Pulse Oximetry 97 07/15/22 19:30 Pain Scale Pain Intensity 6 - Physical Exam General Appearance: no apparent distress, alert Eye Exam: PERRL/EOMI, eyes nml inspection Ears, Nose, Throat Exam: normal ENT inspection, TMs normal, pharynx normal, moist mucous membranes Neck Exam: normal inspection, non-tender, supple, full range of motion Respiratory Exam: normal breath sounds, lungs clear, No respiratory distress Cardiovascular Exam: regular rate/rhythm, normal heart sounds, normal peripheral pulses Gastrointestinal/Abdomen Exam: soft, normal bowel sounds, No tenderness, No mass Back Exam: normal inspection, normal range of motion, No CVA tenderness, No vertebral tenderness Extremity Exam: normal inspection, normal range of motion, pelvis stable Neurologic Exam: alert, oriented x 3, cooperative, normal mood/affect, nml cerebellar function, nml station & gait, sensation nml, No motor deficits Skin Exam: normal color, warm, dry, other (Adhered wound VAC sponge to right gluteus. Will use normal saline to soak the sponge to gradually pull it off of the wound. No complications), No rash Lymphatic Exam: No adenopathy SpO2 Interpretation: normal SpO2: 97 O2 Delivery: Room Air - Course Nursing assessment & vital signs reviewed: Yes Ordered Tests: Medication Summary Discontinued Medications Generic Name Dose Route Start Last Admin Trade Name Freq PRN Reason Stop Dose Admin Morphine Sulfate 4 mg 07/15/22 20:17 Morphine Sulfate 4 Mg/Ml Injection IV 07/15/22 20:18 STAT ONE - Progress Progress: improved Progress Note: Patient reassessed. Pain improved. The wound appears to be healing well. Granulation tissue appears healthy. A wet-to-dry dressing was applied. No indication for further work-up or antibiotics. Will discharge home. Patient agrees to follow-up with her primary care provider within 48 hours for evaluation. Portions of this note were created with voice recognition technology. There may be grammatical, spelling, punctuation or sound alike errors 07/15/22 20:23 Counseled pt/family regarding: diagnosis, need for follow-up - Departure Departure Disposition: Home Clinical Impression: Visit for wound check Condition: Stable Critical Care Time: No Referrals: COOPER HAWKINS PA [Primary Care Provider] - Follow up/PCP as directed Additional Instructions: Discharge/Care Plan DIEGO PEREZ was seen on 07/15/22 in the Emergency Room. The patient was counseled regarding Diagnosis,Lab results, Imaging studies, need for follow up and when to return to the Emergency Room. Prescriptions given: Discharge Note I have spoken with the patient and/or caregivers. I have explained the patient's condition, diagnosis and treatment plan based on the information available to me at this time. I have answered the patient's and/or caregiver's questions and addressed any concerns. The patient and/or caregivers have as good understanding of the patient's diagnosis, condition and treatment plan as can be expected at this point. The vital signs have been stable. The patient's condition is stable and appropriate for discharge from the emergency department. The patient will pursue further outpatient evaluation with the primary care physician or other designated or consulting physician as outlined in the discharge instructions. The patient and/or caregivers are agreeable to this plan of care and follow-up instructions have been explained in detail. The patient and/or caregivers have received these instruction. The patient/and or caregivers are aware that any significant change in condition or worsening of symptoms should prompt an immediate return to this or the closest emergency department or call 911.
[2022-07-15 20:40] VITALS: BP 96/62; PULSE 86
== END 2022-07-15 20:45 | disposition home or self-care (01) ==
LOC: ED 18:47
DX: Z48.01 Encounter for change or removal of surgical wound dressing (principal); I10 Essential (primary) hypertension; E11.42 Type 2 diabetes mellitus with diabetic polyneuropathy; Z79.84 Long term (current) use of oral hypoglycemic drugs; Z79.4 Long term (current) use of insulin; Z79.85 Long-term (current) use of injectable non-insulin antidiabetic drugs; Z79.899 Other long term (current) drug therapy; Z28.310 Unvaccinated for COVID-19
CPT/HCPCS: 96372; 99283; J2270

== ENCOUNTER 2024-03-07 14:22 | Emergency (ER) | payer OTHER ==
[2024-03-07 14:27] VITALS: O2SAT 100
--- NOTE | 2024-03-07 14:47 | ERPHSYRPT ---
- History of Present Illness Time Seen by Provider: 03/07/24 14:40 Source: patient Exam Limitations: no limitations Patient Subjective Stated Complaint: pt here for sob for 3-4 days now, she states she feels like her lungs will not expand, no fever, no cough Triage Nursing Assessment: pt alert, walked in, mild resp distress, resp labored at times, chest clear, moves all ext well, no edema noted Physician History: This is a 38-year-old white female patient of Dr. Mejía who presents by private vehicle with a complaint of shortness of breath for 3 to 4 days. Patient has had intermittent periods of the same symptoms for years. She has no chest pain. She is a former smoker of cigarettes. Patient has a history of COPD, asthma, anxiety/depression, diabetes type 2, peripheral neuropathy, gastroesophageal reflux disease and hypertension as well as hidradenitis suppurativa. Although her room air oxygen saturation level is 100%, she feels as though her lungs are not fully expanding. Timing/Duration: day(s) (3 to 4 ) Activities at Onset: none Severity of Dyspnea-Max: mild Severity of Dyspnea-Current: mild Possible Cause: frequent episodes, chronic episodes Modifying Factors: Improves With: nothing Associated Symptoms: No chest pain/discomfort Allergies/Adverse Reactions: naproxen Adverse Reaction (Severe, Verified 03/07/24 14:25) Rash daptomycin [From Cubicin] Adverse Reaction (Intermediate, Verified 03/07/24 14:25) Hives insulin detemir [From Levemir U-100 Insulin] Adverse Reaction (Intermediate, Verified 03/07/24 14:25) Hives Home Medications: Amlodipine Besylate 5 mg [Norvasc 5 mg] 10 mg PO DAILY 02/26/22 [History] Citalopram Hydrobromide [Celexa] 40 mg PO DAILY 02/26/22 [History] Gabapentin 300 mg PO TID 02/26/22 [History] Gemfibrozil [Lopid] 600 mg PO BID 02/26/22 [History] Metformin HCl 500 mg [Glucophage 500 MG] 1 tab PO BID 02/26/22 [History] cloNIDine HCL [Clonidine HCl] 0.2 mg PO TID 02/26/22 [History] Semaglutide [Ozempic] 0.5 mg WEEKLY 05/20/22 [History] Insulin Pump Syringe, 3 ml [Extended Covel] 1 each MC DAILY 06/11/22 [Histo ry] Topiramate 25 mg [Topamax 25 MG] 25 mg PO DAILY 06/11/22 [History] buPROPion HCL [Wellbutrin Xl] 300 mg PO DAILY 06/11/22 [History] Hx Tetanus, Diphtheria Vaccination/Date Given: Yes Hx Influenza Vaccination/Date Given: No Hx Pneumococcal Vaccination/Date Given: No Immunizations Up to Date: Yes Travel Risk - International Travel Have you traveled outside of the country in past 3 weeks: No - Emerging Infectious Disease Are you exhibiting symptoms associated with any current EIDs: No - Review of Systems Constitutional: No Symptoms Eyes: No Symptoms Ears, Nose, & Throat: No Symptoms Respiratory: Dyspnea Cardiac: No Symptoms Abdominal/Gastrointestinal: No Symptoms Genitourinary Symptoms: No Symptoms Musculoskeletal: No Symptoms Skin: No Symptoms Neurological: No Symptoms Psychological: No Symptoms Endocrine: No Symptoms Hematologic/Lymphatic: No Symptoms Immunological/Allergic: No Symptoms All Other Systems: Reviewed and Negative - Past Medical History Pertinent Past Medical History: Yes Neurological History: Peripheral Neuropathy ENT History: No Pertinent History Cardiac History: Hypertension Respiratory History: Asthma, COPD Endocrine Medical History: Diabetes Type II Musculoskeletal History: Other GI Medical History: GERD, Gallbladder Disease, Other History: No Pertinent History Psycho-Social History: Anxiety, Depression Female Reproductive Disorders: No Pertinent History Other Medical History: HX CERVICAL CA WITH HYSTERECTOMY 2016. HIDRADENITIS (SWEAT AND OIL GLANDS GET INFECTED WHEN I SWEAT - HAVE TO GO TO EMERGENCY ROOM) - STATES LIMITS EXERCISE DUE TO THIS. - Past Surgical History Past Surgical History: Yes Neuro Surgical History: No Pertinent History Cardiac: No Pertinent History Respiratory: No Pertinent History Gastrointestinal: Cholecystectomy Genitourinary: No Pertinent History Musculoskeletal: No Pertinent History Female Surgical History: Hysterectomy Other Surgical History: sweat glands and oil glands removed from armpits and rt leg and L buttock Significant Family History: no pertinent family hx - Female History Hx Last Menstrual Period: hyster Hx Now: No - Social History Smoking Status: Former smoker Exposure to second hand smoke: No Drug Use: marijuana Patient Lives Alone: No - Social Determinants of Health Will the patient participate in the screening: Declined to provide - Nursing Vital Signs Nursing Vital Signs: Initial Vital Signs Pulse Rate 101 H 03/07/24 14:24 Respiratory Rate 17 03/07/24 14:24 Blood Pressure 161/101 03/07/24 14:24 O2 Sat by Pulse Oximetry 100 03/07/24 14:24 Pain Scale Pain Intensity 0 - Physical Exam General Appearance: no apparent distress, alert, anxiety Eye Exam: PERRL/EOMI, eyes nml inspection Ears, Nose, Throat Exam: hearing grossly normal, normal ENT inspection, normal pharynx Neck Exam: normal inspection, non-tender, supple, full range of motion Respiratory Exam: normal breath sounds, lungs clear, airway intact, No chest tenderness, No respiratory distress Cardiovascular/Chest Exam: normal heart sounds, regular rate/rhythm Abdominal/Gastrointestinal Exam: soft, normal bowel sounds, No tenderness Rectal Exam: not done Extremity Exam: non-tender, normal range of motion, normal inspection, normal capillary refill, no calf tenderness, no pedal edema, pelvis stable Neurologic Exam: alert, oriented x 3, cooperative, 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 nml as tested, nml cerebellar function, nml station & gait, sensation nml Skin Exam: normal color, warm, dry Lymphatic Exam: No adenopathy SpO2 Interpretation: normal SpO2: 100 O2 Delivery: Room Air - Course Nursing assessment & vital signs reviewed: Yes EKG Interpreted by Me: RATE (92), Sinus Rhythm, NORMAL AXIS, NORMAL INTERVALS, NORMAL QRS, NORMAL ST-T, Other (No acute ischemia on today's twelve-lead EKG.) Ordered Tests: Active Orders 24 hr Category Date Time Status Bark Scaler STAT Care 03/07/24 14:48 Active EKG-ER Only STAT Care 03/07/24 14:47 Active IV Insertion STAT Care 03/07/24 14:47 Active Pulse Oximetry (ED) STAT Care 03/07/24 14:47 Active CHEST 1 VIEW (PORTABLE) Stat Exams 03/07/24 16:21 Taken BLOOD CULTURE Stat Lab 03/07/24 15:08 Received CBC W DIFF Stat Lab 03/07/24 14:50 Completed CMP Stat Lab 03/07/24 14:50 Completed D-DIMER QUANTITATIVE Stat Lab 03/07/24 14:50 Completed MAGNESIUM Stat Lab 03/07/24 14:50 Completed NT PRO BNPII Stat Lab 03/07/24 Completed TROPONIN Q4H Lab 03/07/24 14:50 Completed TROPONIN Q4H Lab 03/07/24 19:00 Ordered TROPONIN Q4H Lab 03/07/24 23:00 Ordered Lab/Rad Data: Laboratory Result Diagrams 03/07/24 14:50 03/07/24 14:50 Laboratory Results 03/07/24 03/07/24 03/07/24 Range/Units Unknown 15:10 14:50 WBC (3.98-10.04) x10^3/uL RBC (3.93-5.22) x10^6/uL Hgb (11.2-15.7) g/dL Hct (34.1-44.9) % MCV (79.4-94.8) fL MCH (25.6-32.2) pg MCHC (32.2-35.5) g/dL RDW (11.7-14.4) % Plt Count (182-369) x10^3/uL MPV (9.4-12.3) fL Gran % (34.0-71.1) % Immature Gran % (Auto) (0.001-0.429) % Nucleat RBC Rel Count (0.00-0.2) % Eos # (Auto) (0.04-0.36) x10^3/uL Immature Gran # (Auto) (0.001-0.031) x10^3u/L Absolute Lymphs (auto) (1.18-3.74) x10^3/uL Absolute Monos (auto) (0.24-0.86) x10^3/uL Absolute Nucleated RBC (0.00-0.012) x10^3u/L Lymphocytes % (19.3-51.7) % Monocytes % (4.7-12.5) % Eosinophils % (0.7-5.8) % Basophils % (0.1-1.2) % Absolute Granulocytes (1.56-6.13) x10^3/uL Basophils # (0.01-0.08) x10^3/uL D-Dimer (0.0-0.50) mg/L Sodium (135-145) mmol/L Potassium (3.5-5.1) mmol/L Chloride (98-107) mmol/L Carbon Dioxide (22-30) mmol/L Anion Gap (5-15) MEQ/L BUN (7-17) mg/dL Creatinine (0.52-1.04) mg/dL Estimated GFR ML/MIN Glucose (74-106) mg/dL Calcium (8.4-10.2) mg/dL Magnesium (1.6-2.3) mg/dL Total Bilirubin (0.2-1.3) mg/dL AST (14-36) U/L ALT (0-35) U/L Alkaline Phosphatase (38-126) U/L Troponin I < 0.012 (0.000-0.033) ng/mL NT-Pro-B Natriuret Pep 23.9 (<300) pg/mL Serum Total Protein (6.3-8.2) g/dL Albumin (3.5-5.0) g/dL Influenza Type A Ag NEGATIVE (NEGATIVE) Influenza Type B Ag NEGATIVE (NEGATIVE) RSV (PCR) NEGATIVE (NEGATIVE) SARS-CoV-2 (PCR) NEGATIVE (NEGATIVE) 03/07/24 03/07/24 03/07/24 Range/Units 14:50 14:50 14:50 WBC 14.1 H (3.98-10.04) x10^3/uL RBC 4.30 (3.93-5.22) x10^6/uL Hgb 12.4 (11.2-15.7) g/dL Hct 36.6 (34.1-44.9) % MCV 85.1 (79.4-94.8) fL MCH 28.8 (25.6-32.2) pg MCHC 33.9 (32.2-35.5) g/dL RDW 12.8 (11.7-14.4) % Plt Count 449 H (182-369) x10^3/uL MPV 9.9 (9.4-12.3) fL Gran % 64.1 (34.0-71.1) % Immature Gran % (Auto) 0.5 H (0.001-0.429) % Nucleat RBC Rel Count 0.0 (0.00-0.2) % Eos # (Auto) 0.14 (0.04-0.36) x10^3/uL Immature Gran # (Auto) 0.07 H (0.001-0.031) x10^3u/L Absolute Lymphs (auto) 4.05 H (1.18-3.74) x10^3/uL Absolute Monos (auto) 0.68 (0.24-0.86) x10^3/uL Absolute Nucleated RBC 0.00 (0.00-0.012) x10^3u/L Lymphocytes % 28.8 (19.3-51.7) % Monocytes % 4.8 (4.7-12.5) % Eosinophils % 1.0 (0.7-5.8) % Basophils % 0.8 (0.1-1.2) % Absolute Granulocytes 9.00 H (1.56-6.13) x10^3/uL Basophils # 0.11 H (0.01-0.08) x10^3/uL D-Dimer < 0.19 (0.0-0.50) mg/L Sodium 137 (135-145) mmol/L Potassium 4.0 (3.5-5.1) mmol/L Chloride 106 (98-107) mmol/L Carbon Dioxide 23 (22-30) mmol/L Anion Gap 12.6 (5-15) MEQ/L BUN 10 (7-17) mg/dL Creatinine 0.86 (0.52-1.04) mg/dL Estimated GFR 88.6 ML/MIN Glucose 169 H (74-106) mg/dL Calcium 9.6 (8.4-10.2) mg/dL Magnesium 2.0 (1.6-2.3) mg/dL Total Bilirubin 0.70 (0.2-1.3) mg/dL AST 25 (14-36) U/L ALT 27 (0-35) U/L Alkaline Phosphatase 71 (38-126) U/L Troponin I (0.000-0.033) ng/mL NT-Pro-B Natriuret Pep (<300) pg/mL Serum Total Protein 7.8 (6.3-8.2) g/dL Albumin 4.5 (3.5-5.0) g/dL Influenza Type A Ag (NEGATIVE) Influenza Type B Ag (NEGATIVE) RSV (PCR) (NEGATIVE) SARS-CoV-2 (PCR) (NEGATIVE) - Progress Progress: improved, re-examined Air Movement: good Progress Note: 03/07/24 15:05 My medical decision making and the assignment of moderate complexity to this patient's medical issue today is based on review of the patient's past medical history, reviewed patient's medication list, reviewed patient drug allergy list, history present illness and physical findings on examination. The workup in this patient includes placement of intravenous line, CBC, CMP, twelve-lead EKG, BNP, D-dimer, troponin level, viral swabs and magnesium level. Differential diagnosis includes but is not limited to pneumonia, congestive heart failure, COPD, myocardial infarction, arrhythmias, electrolyte abnormalities Counseled pt/family regarding: lab results, diagnosis, need for follow-up, rad results Medical Desision Making - Independent Historian Additional History obtained from: Family - Diagnostic Testing Diagnostic test were ordered, analyzed, and reviewed by me: Yes Radiological Interpretation: Interpreted by me - Risk of complications The pt has a mod risk of morbidity or mortality based on: Need for prescription drug management - Departure Departure Disposition: Home Clinical Impression: Leukocytosis, unspecified Condition: Stable Critical Care Time: No Referrals: COOPER MEJÍA PA [Primary Care Provider] - Follow up/PCP as directed Additional Instructions: Drink plenty fluids. Avoid exposure to any type of smoke. Take your antibiotics and steroids as prescribed. Monitor your blood sugar closely while taking the steroids. Call your primary care provider tomorrow, 03/08/2024, to make arrangements for follow-up appointment for further evaluation and management. Prescriptions: Cefdinir 300 mg PO BID #14 cap Prednisone 10 mg [Deltasone 10 mg] 10 mg PO TID #12 tablet
[2024-03-07 15:15] LABS: BASOPHIL % 0.8 % (0.1-1.2); Basophil (Absolute #) 0.11 x10^3/uL (0.01-0.08); Eosinophil (Absolute #) 0.14 x10^3/uL (0.04-0.36); Hematocrit 36.6 % (34.1-44.9); Hemoglobin 12.4 g/dL (11.2-15.7); IMMATURE GRAN # 0.07 x10^3u/L (0.001-0.031); IMMATURE GRAN % 0.5 % (0.001-0.429); Lymphocyte (Absolute #) 4.05 x10^3/uL (1.18-3.74); Lymphocytes % 28.8 % (19.3-51.7); Mean Cell Volume 85.1 fL (79.4-94.8); Mean Corpuscular Hemoglobin 28.8 pg (25.6-32.2); Mean Corpuscular Hgb Concent. 33.9 g/dL (32.2-35.5); Mean Platelet Volume 9.9 fL (9.4-12.3); Monocyte (Absolute #) 0.68 x10^3/uL (0.24-0.86); Monocytes % 4.8 % (4.7-12.5); Neutrophil % 64.1 % (34.0-71.1); Platelet Count 449 x10^3/uL (182-369); Red Cell Distribution Width 12.8 % (11.7-14.4); White Blood Count 14.1 x10^3/uL (3.98-10.04)
[2024-03-07 15:31] LABS: ALBUMIN 4.5 g/dL (3.5-5.0); ANION GAP 12.6 MEQ/L (5-15); BILIRUBIN,TOTAL 0.7 mg/dL (0.2-1.3); Calcium 9.6 mg/dL (8.4-10.2); Creatinine 1 0.86 mg/dL (0.52-1.04); EST GLOMERULAR FILTRATION RATE 88.6 ML/MIN; Total Protein 7.8 g/dL (6.3-8.2)
[2024-03-07 15:51] LABS: INFLUENZA A NEGATIVE (NEGATIVE); INFLUENZA B NEGATIVE (NEGATIVE); RESPIRATORY SYNCTIAL VIRUS NEGATIVE (NEGATIVE); SARS-CoV-2 Xpert Express NEGATIVE (NEGATIVE)
--- NOTE | 2024-03-07 16:51 | XRAY ---
Indication: Short of breath. Comparison: None Portable chest demonstrates normal heart, lungs, and bony thorax with incidental bilateral axillary surgical clips.
[2024-03-07 17:04] VITALS: BP 186/109; PULSE 84; RESP 15
== END 2024-03-07 17:03 | disposition home or self-care (01) ==
LOC: ED 14:22
DX: D72.829 Elevated white blood cell count, unspecified (principal); R06.02 Shortness of breath; E11.42 Type 2 diabetes mellitus with diabetic polyneuropathy; I10 Essential (primary) hypertension; Z79.52 Long term (current) use of systemic steroids; Z79.84 Long term (current) use of oral hypoglycemic drugs; Z79.85 Long-term (current) use of injectable non-insulin antidiabetic drugs; Z79.4 Long term (current) use of insulin; Z79.899 Other long term (current) drug therapy
CPT/HCPCS: 0241U; 36000; 36415; 71045; 80053; 83735; 83880; 84484; 85025; 85379; 87040; 93005; 93041; 94760; 99284

== ENCOUNTER 2024-03-13 22:59 | Emergency (ER) | payer OTHER | END 2024-03-14 01:20 | disposition left against medical advice (07) | LOC: ED 22:59 | DX: Z53.21 Procedure and treatment not carried out due to patient leaving prior to being seen by health care provider (principal) ==

== ENCOUNTER 2024-05-07 14:53 | Emergency (ER) | payer OTHER ==
[2024-05-07 15:07] VITALS: PULSE 114; TEMP 98.9; O2SAT 98
[2024-05-07] MEDS ORDERED: ROCEPHIN 2 GM/100 ML NACL 2 GM/100 ML IVPB IV ONE (15:31)
[2024-05-07] MEDS: ROCEPHIN 2 GM/100 ML NACL 2 GM/100 ML IVPB IV ONE (15:33)
--- NOTE | 2024-05-07 15:34 | ERPHSYRPT ---
- History of Present Illness Time Seen by Provider: 05/07/24 15:29 Source: patient, family Exam Limitations: no limitations Patient Subjective Stated Complaint: Pt states that she has a "boil" on left buttock for the past 3 weeks but it has gotten bigger and more painful Triage Nursing Assessment: Pt was brought to the ER by her mother, tachycardic, rates pain as 9/10, pulses normal, skin n/w/d, large swollen red area on left buttock, history of one on the right that required surgery to remove, denies any other issues at this time Physician History: Pt states that she has a "boil" on left buttock for the past 3 weeks but it has gotten bigger and more painful large swollen red area on left buttock, history of one on the right that required surgery to remove, denies any other issues at this time Timing/Duration: week(s) (Three weeks), gradual onset Quality: burning, painful Severity: moderate Location: other (left butt cheek) Associated Symptoms: denies symptoms Allergies/Adverse Reactions: evolocumab [From Repatha SureClick] Allergy (Verified 05/07/24 15:08) insulin glulisine [From Apidra U-100 Insulin] Allergy (Verified 05/07/24 15:08) naproxen Adverse Reaction (Severe, Verified 05/07/24 15:08) Rash daptomycin [From Cubicin] Adverse Reaction (Intermediate, Verified 05/07/24 15:08) Hives insulin detemir [From Levemir U-100 Insulin] Adverse Reaction (Intermediate, Verified 05/07/24 15:08) Hives Home Medications: Amlodipine Besylate 5 mg [Norvasc 5 mg] 10 mg PO DAILY 02/26/22 [History] Citalopram Hydrobromide [Celexa] 40 mg PO DAILY 02/26/22 [History] Gabapentin 600 mg PO TID 02/26/22 [History] Gemfibrozil [Lopid] 600 mg PO BID 02/26/22 [History] Metformin HCl 500 mg [Glucophage 500 MG] 1 tab PO BID 02/26/22 [History] cloNIDine HCL [Clonidine HCl] 0.2 mg PO TID 02/26/22 [History] Semaglutide [Ozempic] 2 mg SQ WEEKLY 05/20/22 [History] Insulin Pump Syringe, 3 ml [Extended [place]] 1 each MC DAILY 06/11/22 [History] Topiramate 25 mg [Topamax 25 MG] 25 mg PO DAILY 06/11/22 [History] buPROPion HCL [Wellbutrin Xl] 300 mg PO DAILY 06/11/22 [History] Famotidine 40 mg PO DAILY 05/07/24 [History] Hx Tetanus, Diphtheria Vaccination/Date Given: Yes Hx Influenza Vaccination/Date Given: No Hx Pneumococcal Vaccination/Date Given: No Travel Risk - International Travel Have you traveled outside of the country in past 3 weeks: No - Emerging Infectious Disease Are you exhibiting symptoms associated with any current EIDs: No - Review of Systems Constitutional: No Fever, No Chills Eyes: No Symptoms Ears, Nose, & Throat: No Symptoms Respiratory: No Cough, No Dyspnea Cardiac: No Chest Pain, No Edema, No Syncope Abdominal/Gastrointestinal: No Abdominal Pain, No Nausea, No Vomiting, No Diarrhea Genitourinary Symptoms: No Dysuria Musculoskeletal: No Back Pain, No Neck Pain Skin: Cellulitis, Induration, No Rash Neurological: No Dizziness, No Focal Weakness, No Sensory Changes Psychological: No Symptoms Endocrine: No Symptoms All Other Systems: Reviewed and Negative - Past Medical History Pertinent Past Medical History: Yes Neurological History: Peripheral Neuropathy ENT History: No Pertinent History Cardiac History: Hypertension Respiratory History: Asthma, COPD Endocrine Medical History: Diabetes Type II Musculoskeletal History: Other GI Medical History: GERD, Gallbladder Disease, Other History: No Pertinent History Psycho-Social History: Anxiety, Depression Female Reproductive Disorders: No Pertinent History Other Medical History: HX CERVICAL CA WITH HYSTERECTOMY 2016. HIDRADENITIS (SWEAT AND OIL GLANDS GET INFECTED WHEN I SWEAT - HAVE TO GO TO EMERGENCY ROOM) - STATES LIMITS EXERCISE DUE TO THIS. - Past Surgical History Past Surgical History: Yes Neuro Surgical History: No Pertinent History Cardiac: No Pertinent History Respiratory: No Pertinent History Gastrointestinal: Cholecystectomy Genitourinary: No Pertinent History Musculoskeletal: No Pertinent History Female Surgical History: Hysterectomy Other Surgical History: sweat glands and oil glands removed from armpits and rt leg and L buttock Significant Family History: no pertinent family hx - Female History Hx Last Menstrual Period: hyster Hx Now: No - Social History Smoking Status: Former smoker Exposure to second hand smoke: No Drug Use: marijuana Patient Lives Alone: No - Social Determinants of Health Will the patient participate in the screening: Yes Do you worry about a steady place to live?: No Do you have any problems with any of the following?: No known problems In the past 12 months,have you had to go without utilities?: No Transportation Issues: No Has anyone in your support network made you feel unsafe?: No Have you or anyone in your house had to go without enough: No - Nursing Vital Signs Nursing Vital Signs: Initial Vital Signs Temperature 98.9 F 05/07/24 15:00 Pulse Rate 114 H 05/07/24 15:00 Blood Pressure 131/80 05/07/24 15:00 O2 Sat by Pulse Oximetry 98 05/07/24 15:00 Pain Scale Pain Intensity 9 - Physical Exam General Appearance: no apparent distress, alert Eye Exam: PERRL/EOMI, eyes nml inspection Ears, Nose, Throat Exam: normal ENT inspection, pharynx normal, moist mucous membranes Neck Exam: normal inspection, non-tender, supple, full range of motion Respiratory Exam: normal breath sounds, lungs clear, No respiratory distress Cardiovascular Exam: regular rate/rhythm, normal heart sounds Gastrointestinal/Abdomen Exam: soft, mass, No tenderness Back Exam: normal inspection, normal range of motion, No CVA tenderness, No vertebral tenderness Extremity Exam: normal inspection, normal range of motion Neurologic Exam: alert, oriented x 3, cooperative, normal mood/affect, sensation nml, No motor deficits Skin Exam: normal color, warm, dry, other (7x7 cms abscess on left side of gluteal cleft) SpO2 Interpretation: normal SpO2: 98 O2 Delivery: Room Air - Course Nursing assessment & vital signs reviewed: Yes Ordered Tests: Active Orders 24 hr Category Date Time Status IV Insertion STAT Care 05/07/24 15:29 Active BLOOD CULTURE Stat Lab 05/07/24 15:30 Received CBC W DIFF Stat Lab 05/07/24 15:30 Completed CMP Stat Lab 05/07/24 15:30 Completed Medication Summary Generic Name Dose Route Start Last Admin Trade Name Freq PRN Reason Stop Dose Admin Ceftriaxone Sodium 2 gm in 100 mls @ 200 mls/hr 05/07/24 15:28 05/07/24 15:33 Rocephin 2 Gm/100 Ml Nacl IV 05/07/24 15:57 200 ml/hr STAT ONE 200 mls/hr Administration Discontinued Medications Generic Name Dose Route Start Last Admin Trade Name Eddie PRN Reason Stop Dose Admin Ceftriaxone Sodium Confirm 05/07/24 15:31 Rocephin 2 Gm/100 Ml Nacl Administered 05/07/24 15:32 Dose 2 gm in 100 mls @ ud IV .STK-MED ONE Lab/Rad Data: Laboratory Result Diagrams 05/07/24 15:30 05/07/24 15:30 Laboratory Results 05/07/24 05/07/24 Range/Units 15:30 15:30 WBC 17.7 H (3.98-10.04) x10^3/uL RBC 4.00 (3.93-5.22) x10^6/uL Hgb 11.6 (11.2-15.7) g/dL Hct 34.6 (34.1-44.9) % MCV 86.5 (79.4-94.8) fL MCH 29.0 (25.6-32.2) pg MCHC 33.5 (32.2-35.5) g/dL RDW 12.8 (11.7-14.4) % Plt Count 400 H (182-369) x10^3/uL MPV 9.6 (9.4-12.3) fL Gran % 68.4 (34.0-71.1) % Immature Gran % (Auto) 0.7 H (0.001-0.429) % Nucleat RBC Rel Count 0.0 (0.00-0.2) % Eos # (Auto) 0.17 (0.04-0.36) x10^3/uL Immature Gran # (Auto) 0.12 H (0.001-0.031) x10^3u/L Absolute Lymphs (auto) 4.20 H (1.18-3.74) x10^3/uL Absolute Monos (auto) 0.95 H (0.24-0.86) x10^3/uL Absolute Nucleated RBC 0.00 (0.00-0.012) x10^3u/L Lymphocytes % 23.8 (19.3-51.7) % Monocytes % 5.4 (4.7-12.5) % Eosinophils % 1.0 (0.7-5.8) % Basophils % 0.7 (0.1-1.2) % Absolute Granulocytes 12.10 H (1.56-6.13) x10^3/uL Basophils # 0.12 H (0.01-0.08) x10^3/uL Sodium 137 (135-145) mmol/L Potassium 4.1 (3.5-5.1) mmol/L Chloride 104 (98-107) mmol/L Carbon Dioxide 23 (22-30) mmol/L Anion Gap 14.2 (5-15) MEQ/L BUN 14 (7-17) mg/dL Creatinine 0.92 (0.52-1.04) mg/dL Estimated GFR 81.2 ML/MIN Glucose 161 H (74-106) mg/dL Calcium 9.1 (8.4-10.2) mg/dL Total Bilirubin 0.60 (0.2-1.3) mg/dL AST 20 (14-36) U/L ALT 21 (0-35) U/L Alkaline Phosphatase 75 (38-126) U/L Serum Total Protein 7.5 (6.3-8.2) g/dL Albumin 4.2 (3.5-5.0) g/dL - Progress Progress: unchanged Counseled pt/family regarding: lab results, diagnosis, need for follow-up (surgery) Medical Desision Making - Diagnostic Testing Diagnostic test were ordered, analyzed, and reviewed by me: Yes - Risk of complications The pt has a mod risk of morbidity or mortality based on: Need for minor surgical intervention in patient with know risk factors - Departure Departure Disposition: Home Clinical Impression: Left buttock abscess, Hidradenitis suppurativa Condition: Stable Critical Care Time: No Referrals: COOPER HAWKINS PA [Primary Care Provider] - Follow up/PCP as directed Instructions: Hidradenitis suppurativa, Boil, Adult ED Additional Instructions: Call your primary care physician on Thursday morning and get a referral to surgeon for further surgical intervention. Please take your antibiotic with food. Discharge/Care Plan DIEGO PEREZ JOSE D was seen on 05/07/24 in the Emergency Room. The patient was counseled regarding Diagnosis,Lab results, Imaging studies, need for follow up and when to return to the Emergency Room. Prescriptions given: Discharge Note I have spoken with the patient and/or caregivers. I have explained the patient's condition, diagnosis and treatment plan based on the information available to me at this time. I have answered the patient's and/or caregiver's questions and addressed any concerns. The patient and/or caregivers have as good understanding of the patient's diagnosis, condition and treatment plan as can be expected at this point. The vital signs have been stable. The patient's condition is stable and appropriate for discharge from the emergency department. The patient will pursue further outpatient evaluation with the primary care physician or other designated or consulting physician as outlined in the disc harge instructions. The patient and/or caregivers are agreeable to this plan of care and follow-up instructions have been explained in detail. The patient and/or caregivers have received these instruction. The patient/and or caregivers are aware that any significant change in condition or worsening of symptoms should prompt an immediate return to this or the closest emergency department or call 911. DIEGO PEREZ was seen on 05/07/24 n the Emergency Room. At that time you were treated for an emergent condition, during your visit Laboratory, Radiology and/or other procedures may have been ordered. It is very important that you follow-up with your Primary Care Physician MARI ELAIEN within the next 24-48 hours to review your Emergency Room visit and the final results of testing that was ordered. Some test results such as Urine Cultures, Blood Cultures, and other cultures if ordered will not be finalized for 24-48 hours. If you do not have a Primary Care Provider please call the medical records department at [phone] ext [phone] to obtain a copy of your results or you may sign into our patient portal to obtain these results by visiting us @ [email or web address] and completing the following steps: 1. Click on the Patient Portal link 2. Click the Patient Self Enrollment Link to complete the enrollment form and entering your 3. Once the enrollment form is completed you will receive an email with a temporary ID and password at the email address you provided. 4. Next choose a user name and password. Your user name must be at least 4 characters long and your password must be at least 4 characters long. 5. Choose a security question from the list and provide your answer to the question. If you already have signed into the Health Portal you may access your Health Care Information 09/03 by the following steps: 1. Login to our website @ [email or web address] 2. Enter your original user name and password. FAQS The [facility] Health Portal is an online tool that contains your Lab Results, Radiology Reports, Visit History, Discharge Instructions and Health Summary Lab and Radiology Results will not be available for 72 hours on the portal. The Portal is a secure site, passwords are encryted and URLs are re-written so they cannot be copied and pasted. You and authorized family members are the only ones who can access your Portal. Also there is a timeout feature that protects your information if you leave the Portal page open. If you have technical difficulty please use the Contact Us link on the page this will allow you to submit any questions you have regarding the Portal or you may contact the Medical Record Department at [phone] ext [phone]. Prescriptions: Levofloxacin [Levaquin 500 MG Tablet] 500 mg PO QAM #10 tablet
[2024-05-07 15:35] LABS: BASOPHIL % 0.7 % (0.1-1.2); Basophil (Absolute #) 0.12 x10^3/uL (0.01-0.08); Eosinophil (Absolute #) 0.17 x10^3/uL (0.04-0.36); Hematocrit 34.6 % (34.1-44.9); Hemoglobin 11.6 g/dL (11.2-15.7); IMMATURE GRAN # 0.12 x10^3u/L (0.001-0.031); IMMATURE GRAN % 0.7 % (0.001-0.429); Lymphocytes % 23.8 % (19.3-51.7); Mean Cell Volume 86.5 fL (79.4-94.8); Mean Corpuscular Hgb Concent. 33.5 g/dL (32.2-35.5); Mean Platelet Volume 9.6 fL (9.4-12.3); Monocyte (Absolute #) 0.95 x10^3/uL (0.24-0.86); Monocytes % 5.4 % (4.7-12.5); Neutrophil % 68.4 % (34.0-71.1); Platelet Count 400 x10^3/uL (182-369); Red Cell Distribution Width 12.8 % (11.7-14.4); White Blood Count 17.7 x10^3/uL (3.98-10.04)
[2024-05-07 15:49] LABS: ALBUMIN 4.2 g/dL (3.5-5.0); ANION GAP 14.2 MEQ/L (5-15); BILIRUBIN,TOTAL 0.6 mg/dL (0.2-1.3); Calcium 9.1 mg/dL (8.4-10.2); Creatinine 1 0.92 mg/dL (0.52-1.04); EST GLOMERULAR FILTRATION RATE 81.2 ML/MIN; Potassium 4.1 mmol/L (3.5-5.1); Total Protein 7.5 g/dL (6.3-8.2)
[2024-05-07 15:55] VITALS: BP 118/75
== END 2024-05-07 16:03 | disposition home or self-care (01) ==
LOC: ED 14:53
DX: L02.32 Furuncle of buttock (principal); L73.2 Hidradenitis suppurativa; Z79.899 Other long term (current) drug therapy
CPT/HCPCS: 36000; 36415; 80053; 85025; 87040; 96365; 99283; J0696

== ENCOUNTER 2024-07-20 08:11 | Emergency (ER) | payer OTHER ==
[2024-07-20 08:49] VITALS: TEMP 98
[2024-07-20] MEDS ORDERED: XYLOCAINE 1%/Epi 1:100000 MDV 20 ML ONE (09:02)
--- NOTE | 2024-07-20 09:25 | ERPHSYRPT ---
- History of Present Illness Time Seen by Provider: 07/20/24 08:19 Source: patient Exam Limitations: no limitations Patient Subjective Stated Complaint: C/O abscess to left lower abdomen. Patient indicates she has a chronic, recurring one to this area but it became bad yes terday. Triage Nursing Assessment: Patient ambulated back to ER without difficulties. She is alert and oriented. No SOB. Abscess present to left lower abdomen measuring 2cm X 3cm. Surrounding skin is red, warm to touch. Physician History: 39-year-old female with history of hidradenitis needing I&D's, diabetes mellitus insulin-dependent presented in ER with left lower abdominal wall swelling redness/abscess developing for the last 1 week. Has taken outpatient doxycycline. Patient reports her drain for couple of days but stopped and now having increased swelling and redness since yesterday with some discomfort. No fever or chills reported. Denies any history of MRSA Left lower abdominal wall central area of of purple discoloration with positive fluctuation and 3 to 4 cm area around with erythema/induration. Discussed with patient about I&D and abscesses drained. Packing is done. I will start her on clindamycin. Recommended outpatient follow-up, daily dressing changes, signs symptoms of worsening needing return to ER which she seems understanding. Stable for discharge Allergies/Adverse Reactions: evolocumab [From Repatha SureClick] Allergy (Verified 07/20/24 08:38) insulin glulisine [From Apidra U-100 Insulin] Allergy (Verified 07/20/24 08:38) naproxen Adverse Reaction (Severe, Verified 07/20/24 08:38) Rash daptomycin [From Cubicin] Adverse Reaction (Intermediate, Verified 07/20/24 08:38) Hives insulin detemir [From Levemir U-100 Insulin] Adverse Reaction (Intermediate, Verified 07/20/24 08:38) Hives Home Medications: Amlodipine Besylate 5 mg [Norvasc 5 mg] 10 mg PO DAILY 02/26/22 [History] Citalopram Hydrobromide [Celexa] 40 mg PO DAILY 02/26/22 [History] Gabapentin 600 mg PO TID 02/26/22 [History] Gemfibrozil [Lopid] 600 mg PO BID 02/26/22 [History] Metformin HCl 500 mg [Glucophage 500 MG] 1 tab PO BID 02/26/22 [History] cloNIDine HCL [Clonidine HCl] 0.2 mg PO TID 02/26/22 [History] Semaglutide [Ozempic] 2 mg SQ WEEKLY 05/20/22 [History] Insulin Pump Syringe, 3 ml [Extended [place]] 1 each MC DAILY 06/11/22 [History] Topiramate 25 mg [Topamax 25 MG] 25 mg PO DAILY 06/11/22 [History] buPROPion HCL [Wellbutrin Xl] 300 mg PO DAILY 06/11/22 [History] PANTOPRAZOLE 40 mg Tablet [Protonix 40MG Tablet] 40 mg PO DAILY 07/20/24 [History] Hx Tetanus, Diphtheria Vaccination/Date Given: Yes Hx Influenza Vaccination/Date Given: No Hx Pneumococcal Vaccination/Date Given: No Immunizations Up to Date: Yes Travel Risk - International Travel Have you traveled outside of the country in past 3 weeks: No - Emerging Infectious Disease Are you exhibiting symptoms associated with any current EIDs: No - Review of Systems Constitutional: No Symptoms Ears, Nose, & Throat: No Symptoms Respiratory: No Symptoms Cardiac: No Symptoms Abdominal/Gastrointestinal: No Symptoms Skin: Induration, Skin Lesions Neurological: No Symptoms Hematologic/Lymphatic: No Symptoms Immunological/Allergic: No Symptoms - Past Medical History Pertinent Past Medical History: Yes Neurological History: Peripheral Neuropathy ENT History: No Pertinent History Cardiac History: Hypertension Respiratory History: Asthma, COPD Endocrine Medical History: Diabetes Type II Musculoskeletal History: Other GI Medical History: GERD, Gallbladder Disease, Other History: No Pertinent History Psycho-Social History: Anxiety, Depression Female Reproductive Disorders: No Pertinent History Other Medical History: HX CERVICAL CA WITH HYSTERECTOMY 2016. HIDRADENITIS - Past Surgical History Past Surgical History: Yes Neuro Surgical History: No Pertinent History Cardiac: No Pertinent History Respiratory: No Pertinent History Gastrointestinal: Cholecystectomy Genitourinary: No Pertinent History Musculoskeletal: No Pertinent History Female Surgical History: Hysterectomy Other Surgical History: sweat glands and oil glands removed from armpits and rt leg and L buttock Significant Family History: no pertinent family hx - Female History Hx Last Menstrual Period: hyster Hx Now: No (hysterectomy) - Social History Smoking Status: Never smoker Exposure to second hand smoke: No Drug Use: marijuana Patient Lives Alone: No - Social Determinants of Health Will the patient participate in the screening: Declined to provide - Nursing Vital Signs Nursing Vital Signs: Initial Vital Signs Blood Pressure 137/88 07/20/24 08:36 Pain Scale Pain Intensity 9 - Physical Exam General Appearance: no apparent distress Eye Exam: PERRL/EOMI Ears, Nose, Throat Exam: normal ENT inspection Neck Exam: normal inspection, full range of motion Respiratory Exam: normal breath sounds, lungs clear Cardiovascular Exam: regular rate/rhythm, normal heart sounds Gastrointestinal/Abdomen Exam: soft, tenderness (Left lower abdominal wall cellulitis with abscess) Extremity Exam: normal inspection, normal range of motion Neurologic Exam: alert, oriented x 3, cooperative Skin Exam: normal color SpO2 Interpretation: normal SpO2: 98 O2 Delivery: Room Air Procedures - Incision and Drainage Time of Procedure: 09:25 Timeout: Performed Anesthesia: 1% lidocaine w/epi cc's of anesthesia: 5 Blade Size: 15 I & D Procedure: hibiclens prep, sterile drapes applied, sterile dressing applied, gauze wick placed Results: moderate amount pus Ordered Tests: Medication Summary Discontinued Medications Generic Name Dose Route Start Last Admin Trade Name Eddie PRN Reason Stop Dose Admin Lidocaine/Epinephrine Confirm 07/20/24 09:02 Lidocaine Hcl/Epinephrine 1% 20 Ml Administered 07/20/24 09:03 Dose 10 ml .ROUTE .[employer] ONE - Progress Progress: improved Progress Note: 07/20/24 09:27 39-year-old female with history of hidradenitis needing I&D's, diabetes mellitus insulin-dependent presented in ER with left lower abdominal wall swelling redness/abscess developing for the last 1 week. Has taken outpatient doxycycline. Patient reports her drain for couple of days but stopped and now having increased swelling and redness since yesterday with some discomfort. No fever or chills reported. Denies any history of MRSA Left lower abdominal wall central area of of purple discoloration with positive fluctuation and 3 to 4 cm area around with erythema/induration. Discussed with patient about I&D and abscesses drained. Packing is done. I will start her on clindamycin. Recommended outpatient follow-up, daily dressing changes, signs symptoms of worsening needing return to ER which she seems understanding. Stable for discharge Counseled pt/family regarding: need for follow-up Medical Desision Making - Diagnostic Testing Diagnostic test were ordered, analyzed, and reviewed by me: No - Risk of complications The pt has a mod risk of morbidity or mortality based on: Need for prescription drug management, Need for minor surgical intervention in patient with know risk factors - Departure Departure Disposition: Home Clinical Impression: Cutaneous abscess of abdominal wall Condition: Stable Critical Care Time: No Referrals: COOPER HAWKINS PA [Primary Care Provider] - Follow up with PCP 1 day Instructions: Wound Infection Additional Instructions: Keep it clean and dry. Packing and dressing changes twice a day. Follow-up with primary care for reevaluation. Return to ER for increasing pain swelling redness discharge or if develop fever chills etc. Prescriptions: clindamycin HCL [Clindamycin HCl] 300 mg PO QID 7 Days #28 cap
[2024-07-20] MEDS: XYLOCAINE 1%/Epi 1:100000 MDV 20 ML IJ ONE (09:29)
[2024-07-20 10:02] VITALS: BP 124/90; PULSE 72; RESP 18; O2SAT 100
== END 2024-07-20 10:03 | disposition home or self-care (01) ==
LOC: ED 08:11
DX: L02.211 Cutaneous abscess of abdominal wall (principal)
CPT/HCPCS: 99283

== ENCOUNTER 2024-08-08 10:12 | Emergency (ER) | payer OTHER ==
[2024-08-08 10:29] VITALS: TEMP 98.2; O2SAT 98
[2024-08-08] MEDS ORDERED: Sodium Chloride 0.9% 1000 ML 1,000 ML ONE (10:53)
[2024-08-08] MEDS ORDERED: Zofran 4 MG/2 ML VIAL ONE (10:53)
[2024-08-08] MEDS: Zofran 4 MG/2 ML VIAL IV ONE (10:54)
[2024-08-08] MEDS: Sodium Chloride 0.9% 1000 ML 1,000 ML IV STA (10:54)
--- NOTE | 2024-08-08 11:48 | ERPHSYRPT ---
- History of Present Illness Source: patient Exam Limitations: no limitations Patient Subjective Stated Complaint: C/O nausea, vomiting, diarrhea that began last night. Triage Nursing Assessment: Patient ambulated back to ER without difficulties. Patient chilling/shivering; afebrile at this time. NO cough. NO SOB. Skin tone normal. GHOSH WNL. No active vomiting during assessment. Physician History: Patient has nausea vomiting and diarrhea. No abdominal pain. She thinks she may be dehydrated. Is been going on for a day. She has had frequent episodes of both. She is having less urination but she is still making urine is just concentrated. She has no other complaints. I have seen multiple people with the same symptoms over the last 2 days. She does not have any fever chills or toxic symptoms. Allergies/Adverse Reactions: evolocumab [From Repatha SureClick] Allergy (Verified 08/08/24 10:22) insulin glulisine [From Apidra U-100 Insulin] Allergy (Verified 08/08/24 10:22) naproxen Adverse Reaction (Severe, Verified 08/08/24 10:22) Rash daptomycin [From Cubicin] Adverse Reaction (Intermediate, Verified 08/08/24 10:22) Hives insulin detemir [From Levemir U-100 Insulin] Adverse Reaction (Intermediate, Verified 08/08/24 10:22) Hives Home Medications: Amlodipine Besylate 5 mg [Norvasc 5 mg] 10 mg PO DAILY 02/26/22 [History] Citalopram Hydrobromide [Celexa] 40 mg PO DAILY 02/26/22 [History] Gabapentin 600 mg PO TID 02/26/22 [History] Gemfibrozil [Lopid] 600 mg PO BID 02/26/22 [History] Metformin HCl 500 mg [Glucophage 500 MG] 1 tab PO BID 02/26/22 [History] cloNIDine HCL [Clonidine HCl] 0.2 mg PO TID 02/26/22 [History] Semaglutide [Ozempic] 2 mg SQ WEEKLY 05/20/22 [History] Insulin Pump Syringe, 3 ml [Extended Adrian] 1 each MC DAILY 06/11/22 [H istory] Topiramate 25 mg [Topamax 25 MG] 25 mg PO DAILY 06/11/22 [History] buPROPion HCL [Wellbutrin Xl] 300 mg PO DAILY 06/11/22 [History] PANTOPRAZOLE 40 mg Tablet [Protonix 40MG Tablet] 40 mg PO DAILY 07/20/24 [History] Hx Tetanus, Diphtheria Vaccination/Date Given: Yes Hx Influenza Vaccination/Date Given: No Hx Pneumococcal Vaccination/Date Given: No Immunizations Up to Date: Yes Travel Risk - International Travel Have you traveled outside of the country in past 3 weeks: No - Emerging Infectious Disease Are you exhibiting symptoms associated with any current EIDs: Yes Symptoms: Diarrhea, Vomitting, Other (Please Comment) Comment: sorethroat - Review of Systems Constitutional: No Symptoms Eyes: No Symptoms Genitourinary Symptoms: No Symptoms Musculoskeletal: No Symptoms Neurological: No Symptoms Psychological: No Symptoms All Other Systems: Reviewed and Negative - Past Medical History Pertinent Past Medical History: Yes Neurological History: Peripheral Neuropathy ENT History: No Pertinent History Cardiac History: Hypertension Respiratory History: Asthma, COPD Endocrine Medical History: Diabetes Type II Musculoskeletal History: Other GI Medical History: GERD, Gallbladder Disease, Other History: No Pertinent History Psycho-Social History: Anxiety, Depression Female Reproductive Disorders: No Pertinent History Other Medical History: HX CERVICAL CA WITH HYSTERECTOMY 2016. HIDRADENITIS - Past Surgical History Past Surgical History: Yes Neuro Surgical History: No Pertinent History Cardiac: No Pertinent History Respiratory: No Pertinent History Gastrointestinal: Cholecystectomy Genitourinary: No Pertinent History Musculoskeletal: No Pertinent History Female Surgical History: Hysterectomy Other Surgical History: sweat glands and oil glands removed from armpits and rt leg and L buttock Significant Family History: no pertinent family hx - Female History Hx Last Menstrual Period: hyster Hx Now: No (hysterectomy) - Social History Smoking Status: Never smoker Exposure to second hand smoke: No Drug Use: marijuana Patient Lives Alone: No - Social Determinants of Health Will the patient participate in the screening: Declined to provide - Nursing Vital Signs Nursing Vital Signs: Initial Vital Signs Temperature 98.2 F 08/08/24 10:24 Pulse Rate 100 H 08/08/24 10:24 Respiratory Rate 15 08/08/24 10:24 Blood Pressure 126/88 08/08/24 10:24 O2 Sat by Pulse Oximetry 98 08/08/24 10:24 Pain Scale Pain Intensity 4 - Physical Exam General Appearance: no apparent distress Eye Exam: PERRL/EOMI Ears, Nose, Throat Exam: dry mucous membranes Neck Exam: normal inspection Respiratory Exam: normal breath sounds Cardiovascular Exam: tachycardia Gastrointestinal/Abdomen Exam: soft, normal bowel sounds, No tenderness, No distention, No mass, No guarding Extremity Exam: normal inspection Neurologic Exam: alert, oriented x 3, cooperative Skin Exam: normal color, warm SpO2: 98 Ordered Tests: Medication Summary Discontinued Medications Generic Name Dose Route Start Last Admin Trade Name Freq PRN Reason Stop Dose Admin Sodium Chloride 1,000 mls @ 999 mls/hr 08/08/24 10:42 08/08/24 10:54 Sodium Chloride 0.9% 1000 Ml IV 08/08/24 11:42 999 mls/hr .Q1H1M STA Administration Sodium Chloride Confirm 08/08/24 10:53 Sodium Chloride 0.9% 1000 Ml Administered 08/08/24 10:54 Dose 1,000 mls @ ud .ROUTE .STK-MED ONE Ondansetron HCl 4 mg 08/08/24 10:42 08/08/24 10:54 Ondansetron Hcl 4 Mg/2 Ml Vial IV 08/08/24 10:43 4 mg STAT ONE Administration Ondansetron HCl Confirm 08/08/24 10:53 Ondansetron Hcl 4 Mg/2 Ml Vial Administered 08/08/24 10:54 Dose 4 mg .ROUTE .STK-MED ONE - Progress Progress: unchanged Progress Note: Patient is stable throughout stay. She got some Zofran and felt better. We also gave her a liter of fluids. She tolerated p.o. intake well I think she stable for discharge. On the differential was gastroenteritis, colitis, pancreatitis. It appears she just has gastroenteritis. I have seen multiple people with this 08/08/24 11:46 Medical Desision Making - Diagnostic Testing Diagnostic test were ordered, analyzed, and reviewed by me: Yes - Risk of complications Minimal Risk: Minimal risk of morbidity - Departure Departure Disposition: Home Clinical Impression: Gastroenteritis Condition: Stable Critical Care Time: No Referrals: COOPER HAWKINS PA [Primary Care Provider] - Follow up/PCP as directed Instructions: Viral gastroenteritis in adults Prescriptions: Ondansetron ODT 4 MG [Zofran Odt 4 mg] 4 mg PO Q6H PRN PRN #14 tablet NS PRN Reason: Nausea
[2024-08-08 12:02] VITALS: BP 130/70; PULSE 76; RESP 22
== END 2024-08-08 12:14 | disposition home or self-care (01) ==
LOC: ED 10:12
DX: K52.9 Noninfective gastroenteritis and colitis, unspecified (principal); R11.2 Nausea with vomiting, unspecified
CPT/HCPCS: 96360; 96374; 99283; 99284; J2405